=== PATIENT | male | born 2000 | race Caucasian/White ===

== ENCOUNTER 2022-12-28 20:27 | Emergency (ER) | payer MEDICAID, OTHER ==
[~2022-12-28] VITALS: Ht 170.2 cm; Wt 90.7 kg
[2022-12-28 21:38] VITALS: BP 136/74; TEMP 97.8
[2022-12-28 22:48] VITALS: O2SAT 98
== END 2022-12-28 22:49 | disposition home or self-care (01) ==
LOC: ER 20:32
DX: S61.211A Laceration without foreign body of left index finger without damage to nail, initial encounter (principal); W26.0XXA Contact with knife, initial encounter; Y93.89 Activity, other specified; Y92.89 Other specified places as the place of occurrence of the external cause; Y99.8 Other external cause status